=== PATIENT | female | born 1935 | race Caucasian/White ===

== ENCOUNTER 2017-12-07 13:06 | Inpatient (IN) | payer BC, OTHER ==
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
[2017-12-07] MEDS ORDERED: KETOROLAC TROMETHAMINE 30 MG/1 ML VIAL IVPUSH ONE (17:07)
[2017-12-07] MEDS ORDERED: KETOROLAC TROMETHAMINE 30 MG/1 ML VIAL ONE (18:00)
[2017-12-07 18:01] LABS: EOS % 0.5 % (0-4.5); HEMATOCRIT 41.3 % (32.4-45.2); HEMOGLOBIN 13.6 GM/dL (10.7-15.3); LYMPH % 22.9 % (8-40); MCH 27.7 pg (25.7-33.7); MCHC 32.9 g/dl (32.0-36.0); MEAN CELL VOLUME 84.4 fl (80-96); MEAN PLT VOLUME 7.7 fl (7.5-11.1); MONO % 5.8 % (3.8-10.2); NEUT % 69.8 % (42.8-82.8); PLATELET COUNT 214 K/MM3 (134-434); RDW 14.9 % (11.6-15.6); WHITE BLOOD COUNT 5.8 K/mm3 (4.0-10.0)
[2017-12-07 18:39] LABS: ANION GAP 12 MMOL/L (8-16); BLOOD UREA NITROGEN 8 mg/dL (7-18); CALCIUM 9.3 mg/dL (8.5-10.1); CHLORIDE 110 mmol/L (98-107); CO2 25 mmol/L (21-32); GLUCOSE,RANDOM 107 mg/dL (74-106); POTASSIUM 3.4 mmol/L (3.5-5.1); SGPT/ALT 26 U/L (13-61); SODIUM 147 mmol/L (136-145)
[2017-12-07 18:42] LABS: ALK PHOS 134 U/L (45-117); BILIRUBIN,TOTAL 0.4 mg/dL (0.2-1.0); CREATININE 0.3 mg/dL (0.55-1.02); SGOT/AST 18 U/L (15-37); TOT PROT 7.6 g/dl (6.4-8.2)
[2017-12-07] MEDS ORDERED: morphine CARPU-JECT 4 MG/1 ML DISP.SYRIN IVPUSH ONE (18:42)
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
[2017-12-07] MEDS ORDERED: morphine SULFATE 4 MG/ML VIAL ONE (19:08)
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
[2017-12-07] MEDS ORDERED: POTASSIUM CHLORIDE TABS 20 MEQ TABLET.ER (FP) PO ONE ×2 (20:29→20:40)
[2017-12-07] MEDS ORDERED: APIXABAN 5 MG TABLET PO ONE (20:35)
[2017-12-07] MEDS ORDERED: PHENYTOIN NA EXTENDED 100 MG CAPSULE (FP) PO ONE (20:47)
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
[2017-12-07] MEDS ORDERED: PHENYTOIN NA EXTENDED 100 MG CAPSULE (FP) ONE (23:10)
[2017-12-08] MEDS: PHENYTOIN 50 MG TAB.CHEW PO SCH ×3 (05:16→22:08)
[2017-12-08 07:47] LABS: BASO % 0.9 % (0-2.0); EOS % 1.4 % (0-4.5); HEMATOCRIT 38.9 % (32.4-45.2); HEMOGLOBIN 13.1 GM/dL (10.7-15.3); MCH 28.2 pg (25.7-33.7); MCHC 33.6 g/dl (32.0-36.0); MEAN CELL VOLUME 83.8 fl (80-96); MEAN PLT VOLUME 7.7 fl (7.5-11.1); MONO % 6.8 % (3.8-10.2); NEUT % 69.9 % (42.8-82.8); PLATELET COUNT 202 K/MM3 (134-434); RBC 4.65 M/mm3 (3.60-5.2); RDW 15.1 % (11.6-15.6); WHITE BLOOD COUNT 6.3 K/mm3 (4.0-10.0)
[2017-12-08 08:25] LABS: ANION GAP 6 MMOL/L (8-16); BLOOD UREA NITROGEN 10 mg/dL (7-18); CALCIUM 8.6 mg/dL (8.5-10.1); CHLORIDE 106 mmol/L (98-107); CO2 32 mmol/L (21-32); CREATININE 0.4 mg/dL (0.55-1.02); GLUCOSE,RANDOM 96 mg/dL (74-106); MAGNESIUM 2.2 mg/dL (1.8-2.4); PHOSPHOROUS 3.3 mg/dL (2.5-4.9); POTASSIUM 3.1 mmol/L (3.5-5.1); SODIUM 144 mmol/L (136-145)
[2017-12-08] MEDS ORDERED: PT OWN MED DRAWER 7, Y5N ONE ×2 (10:04→21:29)
[2017-12-08] MEDS: ENOXAPARIN NA (PORCINE) 60 MG/0.6 ML DISP.SYRIN SQ SCH ×2 (10:42→22:10)
[2017-12-08] MEDS: VITAMIN E 400 INTERNATIONAL-UNITS CAPSULE (FP) PO SCH (10:42)
[2017-12-08] MEDS: OMEGA-3 ACID ETHYL ESTERS (FATTY-ACIDS) 1 GM CAPSULE (FP) PO SCH ×2 (10:43→22:09)
[2017-12-08] MEDS: CALCIUM 500MG/VIT-D 200 UNITS COMBO TABLET (FP) PO SCH (10:43)
[2017-12-08] MEDS: LOSARTAN POTASSIUM 50 MG TABLET (FP) PO SCH (10:43)
[2017-12-08] MEDS: ASCORBIC ACID 500 MG TABLET (FP) PO SCH (10:43)
--- NOTE | 2017-12-08 12:31 | PN ---
Progress Note, Physician Chief Complaint: patient seen and examined complaining of hip pain and leg pain has DVT in right leg on lovenox - Current Medication List Current Medications: Active Medications Ascorbic Acid (Vitamin C -) 1,000 mg PO DAILY [facility] Last Admin: 12/08/17 10:43 Dose: 1,000 mg Calcium Carbonate/Cholecalciferol (Os-Jv 500+D -) 1 tab PO DAILY [facility] Last Admin: 12/08/17 10:43 Dose: 1 tab Enoxaparin Sodium (Lovenox -) 60 mg SQ BID [facility] Last Admin: 12/08/17 10:42 Dose: 60 mg Losartan Potassium (Cozaar -) 50 mg PO DAILY [facility] Last Admin: 12/08/17 10:43 Dose: 50 mg Uixcx-8-Hvdd Ethyl Esters (Lovaza -) 1 gm PO BID [facility] Last Admin: 12/08/17 10:43 Dose: 1 gm Oxycodone HCl (Roxicodone -) 5 mg PO Q6H PRN PRN Reason: PAIN LEVEL 6-10 Phenytoin Sodium (Dilantin Chewable Tablet -) 100 mg PO TID [facility] Last Admin: 12/08/17 05:16 Dose: 100 mg Vitamin E (Vitamin E -) 400 unit PO DAILY [facility] Last Admin: 12/08/17 10:42 Dose: 400 unit - Objective Vital Signs: Vital Signs Temperature 97.8 F 12/08/17 09:00 Pulse Rate 92 H 12/08/17 09:00 Respiratory Rate 19 12/08/17 09:00 Blood Pressure 147/74 12/08/17 09:00 O2 Sat by Pulse Oximetry (%) 98 12/08/17 06:53 Constitutional: Yes: Calm Cardiovascular: Yes: Regular Rate and Rhythm, S1, S2 Respiratory: Yes: CTA Bilaterally Gastrointestinal: Yes: Normal Bowel Sounds, Soft Musculoskeletal: Yes: Other (right hip pain) Neurological: Yes: Alert, Oriented Labs: CBC, BMP 12/08/17 06:30 12/08/17 06:30 Problem List - Problems (1) Acute DVT of right tibial vein Assessment/Plan: lovenox will need to bridge to coumadin heme consult regarding AC eliquis stopped bc interaction with dilantin Code(s): I82.441 - ACUTE EMBOLISM AND THROMBOSIS OF RIGHT TIBIAL VEIN (2) Seizure disorder Assessment/Plan: dilatin tid Code(s): G40.909 - EPILEPSY, UNSP, NOT INTRACTABLE, WITHOUT STATUS EPILEPTICUS (3) HTN (hypertension) Assessment/Plan: losartan Code(s): I10 - ESSENTIAL (PRIMARY) HYPERTENSION Assessment/Plan potassium repleted
[2017-12-08] MEDS ORDERED: POTASSIUM CHLORIDE TABS 20 MEQ TABLET.ER (FP) PO ONE (13:15)
[2017-12-08 15:30] VITALS: BMI 23.4
[2017-12-08] MEDS: DOCUSATE SODIUM 100 MG CAPSULE (FP) PO SCH (22:07)
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
[2017-12-08] MEDS: oxyCODONE HCL 5 MG TABLET PO PRN (22:30)
[2017-12-09] MEDS: PHENYTOIN 50 MG TAB.CHEW PO SCH ×3 (06:33→22:10)
[2017-12-09 07:37] LABS: INR 1.2 (0.83-1.09); PROTHROMBIN TIME (PATIENT) 13.6 SEC (9.7-13.0)
[2017-12-09 07:54] LABS: CHLORIDE 106 mmol/L (98-107); POTASSIUM 3.6 mmol/L (3.5-5.1); SODIUM 143 mmol/L (136-145)
[2017-12-09 08:05] LABS: ALBUMIN 3.2 g/dl (3.4-5.0); ALK PHOS 123 U/L (45-117); ANION GAP 8 MMOL/L (8-16); BILIRUBIN,TOTAL 0.4 mg/dL (0.2-1.0); BLOOD UREA NITROGEN 14 mg/dL (7-18); CALCIUM 8.6 mg/dL (8.5-10.1); CO2 29 mmol/L (21-32); CREATININE 0.4 mg/dL (0.55-1.3); GLUCOSE,RANDOM 95 mg/dL (74-106); SGOT/AST 16 U/L (15-37); SGPT/ALT 23 U/L (13-61); TOT PROT 6.4 g/dl (6.4-8.2)
[2017-12-09] MEDS ORDERED: PT OWN MED DRAWER 7, Y5N ONE ×2 (09:53→21:18)
[2017-12-09] MEDS: oxyCODONE HCL 5 MG TABLET PO PRN ×2 (10:20→17:30)
[2017-12-09] MEDS: CALCIUM 500MG/VIT-D 200 UNITS COMBO TABLET (FP) PO SCH (10:21)
[2017-12-09] MEDS: OMEGA-3 ACID ETHYL ESTERS (FATTY-ACIDS) 1 GM CAPSULE (FP) PO SCH ×2 (10:21→22:09)
[2017-12-09] MEDS: LOSARTAN POTASSIUM 50 MG TABLET (FP) PO SCH (10:21)
[2017-12-09] MEDS: ENOXAPARIN NA (PORCINE) 60 MG/0.6 ML DISP.SYRIN SQ SCH ×2 (10:21→22:10)
[2017-12-09] MEDS: ASCORBIC ACID 500 MG TABLET (FP) PO SCH (10:21)
[2017-12-09] MEDS: VITAMIN E 400 INTERNATIONAL-UNITS CAPSULE (FP) PO SCH (10:22)
--- NOTE | 2017-12-09 13:27 | CON.GI ---
Consult Consult Specialty:: GI Reason for Consultation:: "constipation" - History of Present Illness History of Present Illness: Chart reviewed. Hospital course noted. GI called for "constipation" Per initial intake: 82 yo female pmh of HTN, Seizures,RA, osteoarthritis and h/o femur fracture as a teenager presents to the ED for right hip and thigh pain. Unable to ambulate due to pain for 3 days. Rt. lower extremity duplex showed posterior tibial DVT Xrays show increased arthritic changes in hip/spine. NO SOB, CP, abdominal pain or changes in bowel/bladder habits. No dysphagia, odynophagia, dyspepsia, melena, hematochezia, hematemesis, acute weight loss. Base line BMs 1 /2-3 days w/o stimulatns or laxatives. No Bms for 72 hrs, asymptomatic. Tolerating curret diet. Normal abdomen on exam. CT of the lumbar spine - constipation, thickened rectosigmoid wall - History Source History Provided By: Patient, Medical Record - Past Medical History ...: No - Alcohol/Substance Use Hx Alcohol Use: No - Smoking History Smoking history: Never smoked Have you smoked in the past 12 months: No Home Medications - Allergies Allergies/Adverse Reactions: Allergies Allergy/AdvReac Type Severity Reaction Status Date / Time No Known Allergies Allergy Verified 12/07/17 13:17 - Home Medications Home Medications: Ambulatory Orders Ascorbic Acid [Vitamin C] 1,000 mg PO DAILY 12/07/17 Jv/D3/Mag11/Zinc/Reserve Operator/Jesus/Bor [Caltrate 600+D Plus Tablet] 1 each PO DAILY 03/14 Losartan Potassium [Cozaar -] 50 mg PO DAILY 12/07/17 [place]-3 Fatty Acids [[place]-3] 1,000 mg PO BID 12/07/17 Phenytoin [Dilantin Chewable Tablet -] 100 mg PO TID 12/07/17 Vitamin E 400 unit PO DAILY 12/07/17 Celecoxib [Celebrex] 200 mg PO PRN PRN 12/08/17 Family Disease History - Family Disease History Family History: Unremarkable (non-contributory) Review of Systems Findings/Remarks: as per HPI, ED, H&P Physical Exam-GI Vital Signs: Vital Signs Temperature 98.5 F 12/09/17 06:00 Pulse Rate 89 12/09/17 06:00 Respiratory Rate 18 12/09/17 06:00 Blood Pressure 142/70 12/09/17 06:00 O2 Sat by Pulse Oximetry (%) 97 12/09/17 05:45 Constitutional: Yes: Well Nourished, No Distress, Calm Eyes: Yes: Conjunctiva Clear HENT: Yes: Atraumatic Neck: Yes: Supple Cardiovascular: Yes: Regular Rate and Rhythm Respiratory: Yes: Regular Gastrointestinal Inspection: No: Ascites, Distention ...Auscultate: Yes: Normoactive Bowel Sounds ...Palpate: Yes: Soft. No: Firm/Rigid, Guarding, Mass, Tenderness, Tenderness, Epigastium Neurological: Yes: Alert, Oriented Labs: CBC, BMP 12/08/17 06:30 12/09/17 06:00 INR, PTT INR 1.20 (0.83-1.09) H 12/09/17 06:00 Laboratory Last Values WBC 6.3 K/mm3 (4.0-10.0) 12/08/17 06:30 RBC 4.65 M/mm3 (3.60-5.2) 12/08/17 06:30 Hgb 13.1 GM/dL (10.7-15.3) 12/08/17 06:30 Hct 38.9 % (32.4-45.2) 12/08/17 06:30 MCV 83.8 fl (80-96) 12/08/17 06:30 MCH 28.2 pg (25.7-33.7) 12/08/17 06:30 MCHC 33.6 g/dl (32.0-36.0) 12/08/17 06:30 RDW 15.1 % (11.6-15.6) 12/08/17 06:30 Plt Count 202 K/MM3 (134-434) 12/08/17 06:30 MPV 7.7 fl (7.5-11.1) 12/08/17 06:30 Absolute Neuts (auto) 4.4 K/mm3 (1.5-8.0) 12/08/17 06:30 Neutrophils % 69.9 % (42.8-82.8) 12/08/17 06:30 Lymphocytes % 21.0 % (8-40) 12/08/17 06:30 Monocytes % 6.8 % (3.8-10.2) 12/08/17 06:30 Eosinophils % 1.4 % (0-4.5) D 12/08/17 06:30 Basophils % 0.9 % (0-2.0) 12/08/17 06:30 Nucleated RBC % 0 % (0-0) 12/08/17 06:30 PT with INR 13.60 SEC (9.7-13.0) H 12/09/17 06:00 INR 1.20 (0.83-1.09) H 12/09/17 06:00 Sodium 143 mmol/L (136-145) 12/09/17 06:00 Potassium 3.6 mmol/L (3.5-5.1) 12/09/17 06:00 Chloride 106 mmol/L (98-107) 12/09/17 06:00 Carbon Dioxide 29 mmol/L (21-32) 12/09/17 06:00 Anion Gap 8 MMOL/L (8-16) 12/09/17 06:00 BUN 14 mg/dL (7-18) 12/09/17 06:00 Creatinine 0.4 mg/dL (0.55-1.3) L 12/09/17 06:00 Creat Clearance w eGFR > 60 (>60) 12/09/17 06:00 Random Glucose 95 mg/dL (74-106) 12/09/17 06:00 Calcium 8.6 mg/dL (8.5-10.1) 12/09/17 06:00 Phosphorus 3.3 mg/dL (2.5-4.9) 12/08/17 06:30 Magnesium 2.2 mg/dL (1.8-2.4) 12/08/17 06:30 Total Bilirubin 0.4 mg/dL (0.2-1.0) 12/09/17 06:00 AST 16 U/L (15-37) 12/09/17 06:00 ALT 23 U/L (13-61) 12/09/17 06:00 Alkaline Phosphatase 123 U/L (45-117) H 12/09/17 06:00 Total Protein 6.4 g/dl (6.4-8.2) 12/09/17 06:00 Albumin 3.2 g/dl (3.4-5.0) L 12/09/17 06:00 Imaging - Results Cat Scan: Report Reviewed (lumbar - constipation, thikened rectosigmoid wall) Problem List - Problems (1) Altered bowel function Code(s): R19.8 - OTH SYMPTOMS AND SIGNS INVOLVING THE DGSTV SYS AND ABDOMEN (2) Acute DVT of right tibial vein Code(s): I82.441 - ACUTE EMBOLISM AND THROMBOSIS OF RIGHT TIBIAL VEIN (3) HTN (hypertension) Code(s): I10 - ESSENTIAL (PRIMARY) HYPERTENSION (4) Seizure disorder Code(s): G40.909 - EPILEPSY, UNSP, NOT INTRACTABLE, WITHOUT STATUS EPILEPTICUS Assessment/Plan An 82F, with decreased mobility and slow transit constipation, vs atonic colon vs medication-related constipation (dilantin). Agree with aggressive bowel regiment such as Miralax po TID-QID until good bms. Also consider tap water enemas until clear.
[2017-12-09] MEDS ORDERED: POLYETHYLENE GLYCOL 3350 119 GM BTL PO SCH (13:30)
--- NOTE | 2017-12-09 13:33 | PN ---
Progress Note, Physician Chief Complaint: patient seen and examined in bed sleeping - Current Medication List Current Medications: Active Medications Ascorbic Acid (Vitamin C -) 1,000 mg PO DAILY [facility] Last Admin: 12/09/17 10:21 Dose: 1,000 mg Calcium Carbonate/Cholecalciferol (Os-Jv 500+D -) 1 tab PO DAILY [facility] Last Admin: 12/09/17 10:21 Dose: 1 tab Docusate Sodium (Colace -) 300 mg PO HS [facility] Last Admin: 12/08/17 22:07 Dose: 300 mg Enoxaparin Sodium (Lovenox -) 60 mg SQ BID [facility] Last Admin: 12/09/17 10:21 Dose: 60 mg Losartan Potassium (Cozaar -) 50 mg PO DAILY [facility] Last Admin: 12/09/17 10:21 Dose: 50 mg Shliu-2-Gjnt Ethyl Esters (Lovaza -) 1 gm PO BID [facility] Last Admin: 12/09/17 10:21 Dose: 1 gm Oxycodone HCl (Roxicodone -) 5 mg PO Q6H PRN PRN Reason: PAIN LEVEL 6-10 Last Admin: 12/09/17 10:20 Dose: 5 mg Phenytoin Sodium (Dilantin Chewable Tablet -) 100 mg PO TID [facility] Last Admin: 12/09/17 13:20 Dose: 100 mg Polyethylene Glycol (Miralax (For Daily Use) -) 17 gm PO BID [facility] Vitamin E (Vitamin E -) 400 unit PO DAILY [facility] Last Admin: 12/09/17 10:22 Dose: 400 unit - Objective Vital Signs: Vital Signs Temperature 98.5 F 12/09/17 06:00 Pulse Rate 89 12/09/17 06:00 Respiratory Rate 18 12/09/17 06:00 Blood Pressure 142/70 12/09/17 06:00 O2 Sat by Pulse Oximetry (%) 97 12/09/17 05:45 Constitutional: Yes: Calm Cardiovascular: Yes: Regular Rate and Rhythm, S1, S2 Respiratory: Yes: CTA Bilaterally Gastrointestinal: Yes: Normal Bowel Sounds, Soft Neurological: Yes: Alert, Oriented Labs: CBC, BMP 12/08/17 06:30 12/09/17 06:00 INR, PTT INR 1.20 (0.83-1.09) H 12/09/17 06:00 Problem List - Problems (1) Acute DVT of right tibial vein Assessment/Plan: lovenox will need to bridge to coumadin-jarrod need frequent monitoring and patient is not mobile enough to go weekly for blood draws with her PMD dr Leggett. heme consult regarding AC bone scan pending.- occult malignancy screeing work up eliquis stopped bc interaction with dilantin rheum consult pending Code(s): I82.441 - ACUTE EMBOLISM AND THROMBOSIS OF RIGHT TIBIAL VEIN (2) Seizure disorder Assessment/Plan: dilatin tid Code(s): G40.909 - EPILEPSY, UNSP, NOT INTRACTABLE, WITHOUT STATUS EPILEPTICUS (3) HTN (hypertension) Assessment/Plan: losartan Code(s): I10 - ESSENTIAL (PRIMARY) HYPERTENSION Assessment/Plan potassium repleted back pain lumbar ct noted disc herniations dr grajeda consulted constipation: gi consult miralax bid
--- NOTE | 2017-12-09 14:16 | CONSULT ---
Consult - text type - Consultation Consultation Note: FULL CONSULT DICTATED IMP: SEVERE DJD B HIPS RIGHT> LEFT PLAN: DC TO HOME OR SNF WITH SERVICES. I WILL BOOK HER FOR AN ELECTIVE RIGHT OWEN.
--- NOTE | 2017-12-09 15:58 | CONSULT ---
Consult Consult Specialty:: Rheumatology - History of Present Illness History of Present Illness: 82 yo female with history of questionable seronegative rheumatoid arthritis, Spinal stenosis, seizures (on Dilantin) hypertension and a right femur fracture , admitted with inability to walk. Renuka NASSAR been following the patient since 2004 for significant erosive osteoarthritis. Initially the possibility of rheumatoid arthritis was considered, she had negative serology and there was no significant response to Methotrexate or Leflunomide. Since then she has been stable. She has large Heberden's and Edil's nodes with no effusions in hands. -It is unlikely that she has inflammatory arthritis. The patient has a 2 year history of mild discomfort in the right hip- she was able to walk with a cane, and on her last visit [facility] on 09/06/17 she had no tenderness in the right hip during the physical examination. About 10 days ago she had progressive pain in the right hip and was not able to walk. Since admission she has not been able to walk to PT. X ray of the pelvis: right hip with severe narrowing of the joint space with bone on bone contact and increased sclerosis in the superior border. Soft tissue calcification lateral to the hip. Mild joint space narrowing of the left hip. CT of the lumbar spine reported with multilevel dis bulging and herniation with posterior spur formation and significant bilateral facet hypertrophy. Moderate top severe degenerative central spinal canal stenosis impinging right L4 and L5 - History Source History Provided By: Patient, Medical Record - Past Medical History Cardio/Vascular: Yes: HTN ...: No - Alcohol/Substance Use Hx Alcohol Use: No - Smoking History Smoking history: Never smoked Have you smoked in the past 12 months: No Home Medications - Allergies Allergies/Adverse Reactions: Allergies Allergy/AdvReac Type Severity Reaction Status Date / Time No Known Allergies Allergy Verified 12/07/17 13:17 - Home Medications Home Medications: Ambulatory Orders Ascorbic Acid [Vitamin C] 1,000 mg PO DAILY 12/07/17 Jv/D3/Mag11/Zinc/Yam Curer/Jesus/Bor [Caltrate 600+D Plus Tablet] 1 each PO DAILY 03/14 Losartan Potassium [Cozaar -] 50 mg PO DAILY 12/07/17 [place]-3 Fatty Acids [[place]-3] 1,000 mg PO BID 12/07/17 Phenytoin [Dilantin Chewable Tablet -] 100 mg PO TID 12/07/17 Vitamin E 400 unit PO DAILY 12/07/17 Celecoxib [Celebrex] 200 mg PO PRN PRN 12/08/17 Review of Systems - Review of Systems Constitutional: reports: Malaise, Weakness Eyes: reports: No Symptoms HENT: reports: No Symptoms Neck: reports: No Symptoms Cardiovascular: reports: No Symptoms Respiratory: reports: No Symptoms Gastrointestinal: reports: No Symptoms Genitourinary: reports: No Symptoms Musculoskeletal: reports: Other (See HPI) Physical Exam Vital Signs: Vital Signs Temperature 98.2 F 12/09/17 14:24 Pulse Rate 91 H 12/09/17 14:24 Respiratory Rate 18 12/09/17 14:24 Blood Pressure 150/82 12/09/17 14:24 O2 Sat by Pulse Oximetry (%) 97 12/09/17 05:45 Constitutional: Yes: Mild Distress Eyes: Yes: WNL HENT: Yes: WNL Neck: Yes: WNL Cardiovascular: Yes: WNL Respiratory: Yes: WNL Gastrointestinal: Yes: WNL Musculoskeletal: Yes: Other (Severe tenderness ion the right hip. Cannot flex more than 30o. Large Heberden's and Edil's nodes in both hands. No othe ractive joints.) Labs: CBC, BMP 12/08/17 06:30 12/09/17 06:00 Laboratory Tests 12/09/17 06:00 Random Glucose 95 Calcium 8.6 Total Bilirubin 0.4 AST 16 ALT 23 Alkaline Phosphatase 123 H Total Protein 6.4 Albumin 3.2 L Problem List - Problems (1) Osteoarthritis of right hip Assessment/Plan: Osteoarthritis of the right hip hip with severe damage. The patient was seen by Dr. Dunn. The patient will be scheduled for THR. Code(s): M16.11 - UNILATERAL PRIMARY OSTEOARTHRITIS, RIGHT HIP
--- NOTE | 2017-12-09 18:13 | CONS ---
DATE OF CONSULTATION: 12/09/2017 ORTHOPEDIC CONSULTATION/[facility] HISTORY OF PRESENT ILLNESS: Patient is an 82-year-old female, long history of hip pain and arthritis in their hip and in other locations. She has been managing at home with progressive discomfort in her hips, especially in her right hip. The pain was still much, so she was admitted through the emergency room the other day. No recent history of fall or trauma. Patient does give a history of surgery performed on her right femur when she was 21 years old but nothing recent. PHYSICAL EXAMINATION: Patient has poor range of motion of both her hips, but the right one is much more symptomatic and painful with any range of motion. She abducts on her right side at about 15 to 20 degrees, external rotation markedly limited. Extension is complete, but she can only flex about 60, 70 degrees. Range of motion is similar but less severity on the left hand side. She has slight limb length discrepancy with centimeter. She has surgical incision on the lateral mid distal thigh of the right lower extremity. Good motion in the ankle and toes. X-rays and CAT scan that were taken upon admission shows severe DJD, especially in the right hip, less so in the left hip. There is status post open reduction, internal fixation of the mid to distal femur with the plate and screws present, as well as a large of callus medially. IMPRESSION: Worsening pain in both hips, but especially in her right hip with severe degenerative joint disease both hips and status post open reduction, internal fixation of the right femoral shaft many years prior. Risks, benefits, and alternatives discussed with patient and with in great detail. We have elected to discharge the patient with social media marketing analyst and physical therapy and electively bring her in for an operative intervention right total hip replacement in the future. Patient realized this procedure is further complicated more than the normal total hip replacement due to the fact that the patient has previous open reduction, internal fixation which makes the procedure more difficult and potentially stress fractures in that region as well. Patient understands these and all complications, would like to proceed. Her was present as well and also asked questions and was satisfied with the responses. Will book the patient in the upcoming weeks, so the patient to come back into the hospital to have an elective procedure performed. In the interim, patient could be discharged to home with services or to a short-term nursing facility and to electively go back into the hospital. While she is here we will order a Noe CAT scan to allow us to preoperatively template and use the Noe device to insert her hip. I went through that protocol with her and her as well. DALLAS CHASE M.D. [id number]
[2017-12-09] MEDS: POLYETHYLENE GLYCOL 3350 119 GM BTL PO SCH ×2 (18:58→22:11)
--- NOTE | 2017-12-09 20:04 | PN ---
Progress Note (short form) - Note Progress Note: Patient seen and examined Seen by rheumatology and ortho For THR Has DJD, o.a., nerve impingement , central spine stenosis , knee compartment impingement R>L Fecal impaction Has right tibial DVT- placed on full dose anticoagulation Last Vital Signs Temp Pulse Resp BP Pulse Ox 98.2 F 83 20 155/83 97 12/09/17 18:00 12/09/17 18:00 12/09/17 18:00 12/09/17 18:00 12/09/17 14:00 Lungs- diminished breath sounds Cor- RSR Abd -soft Ext- RLE difficult with ROM secondary to OA of hip CBC, BMP 12/08/17 06:30 12/09/17 06:00 Current Medications Generic Name Dose Route Start Last Admin Trade Name Freq PRN Reason Stop Dose Admin Ascorbic Acid 1,000 mg 12/08/17 10:00 12/09/17 10:21 Vitamin C - PO 1,000 mg DAILY [facility] Administration Calcium Carbonate/Cholecalciferol 1 tab 12/08/17 10:00 12/09/17 10:21 Os-Jv 500+D - PO 1 tab DAILY [facility] Administration Docusate Sodium 300 mg 12/08/17 22:00 12/08/17 22:07 Colace - PO 300 mg HS [facility] Administration Enoxaparin Sodium 60 mg 12/08/17 10:00 12/09/17 10:21 Lovenox - SQ 60 mg BID [facility] Administration Losartan Potassium 50 mg 12/08/17 10:00 12/09/17 10:21 Cozaar - PO 50 mg DAILY [facility] Administration Ssfby-6-Zrgc Ethyl Esters 1 gm 12/08/17 10:00 12/09/17 10:21 Lovaza - PO 1 gm BID [facility] Administration Oxycodone HCl 5 mg 12/07/17 22:51 12/09/17 17:30 Roxicodone - PO 5 mg Q6H PRN Administration PAIN LEVEL 6-10 Phenytoin Sodium 100 mg 12/08/17 06:00 12/09/17 13:20 Dilantin Chewable Tablet - PO 100 mg TID [facility] Administration Polyethylene Glycol 17 gm 12/09/17 18:00 12/09/17 18:58 Miralax (For Daily Use) - PO Not Given QID [facility] Vitamin E 400 unit 12/08/17 10:00 12/09/17 10:22 Vitamin E - PO 400 unit DAILY [facility] Administration Impr: OA For THR For a/c with tibial DVT.
[2017-12-09] MEDS: DOCUSATE SODIUM 100 MG CAPSULE (FP) PO SCH (22:09)
[2017-12-10] MEDS: PHENYTOIN 50 MG TAB.CHEW PO SCH ×3 (06:31→21:53)
[2017-12-10 07:12] LABS: BASO % 0.9 % (0-2.0); EOS % 3.6 % (0-4.5); HEMATOCRIT 39.1 % (32.4-45.2); HEMOGLOBIN 12.7 GM/dL (10.7-15.3); MCH 27.6 pg (25.7-33.7); MCHC 32.4 g/dl (32.0-36.0); MEAN CELL VOLUME 85.1 fl (80-96); MEAN PLT VOLUME 7.6 fl (7.5-11.1); NEUT % 58.5 % (42.8-82.8); PLATELET COUNT 191 K/MM3 (134-434); RDW 14.5 % (11.6-15.6); WHITE BLOOD COUNT 5.5 K/mm3 (4.0-10.0)
[2017-12-10 07:59] LABS: ANION GAP 6 MMOL/L (8-16); BLOOD UREA NITROGEN 13 mg/dL (7-18); CALCIUM 8.5 mg/dL (8.5-10.1); CHLORIDE 106 mmol/L (98-107); CO2 32 mmol/L (21-32); GLUCOSE,RANDOM 99 mg/dL (74-106); POTASSIUM 3.8 mmol/L (3.5-5.1); SODIUM 144 mmol/L (136-145)
[2017-12-10 08:02] LABS: ALK PHOS 125 U/L (45-117); BILIRUBIN,TOTAL 0.4 mg/dL (0.2-1.0); CREATININE 0.4 mg/dL (0.55-1.3); SGOT/AST 16 U/L (15-37); SGPT/ALT 22 U/L (13-61); TOT PROT 6.3 g/dl (6.4-8.2)
[2017-12-10] MEDS: oxyCODONE HCL 5 MG TABLET PO PRN (08:10)
--- NOTE | 2017-12-10 08:18 | PN ---
Progress Note, Physician Chief Complaint: AWAKE ALERT EVENTS AND NOTES REVIEWED C/O HIP PAIN - Current Medication List Current Medications: Active Medications Ascorbic Acid (Vitamin C -) 1,000 mg PO DAILY [facility] Last Admin: 12/09/17 10:21 Dose: 1,000 mg Calcium Carbonate/Cholecalciferol (Os-Jv 500+D -) 1 tab PO DAILY [facility] Last Admin: 12/09/17 10:21 Dose: 1 tab Docusate Sodium (Colace -) 300 mg PO HS [facility] Last Admin: 12/09/17 22:09 Dose: 300 mg Enoxaparin Sodium (Lovenox -) 60 mg SQ BID [facility] Last Admin: 12/09/17 22:10 Dose: 60 mg Losartan Potassium (Cozaar -) 50 mg PO DAILY [facility] Last Admin: 12/09/17 10:21 Dose: 50 mg Ksvwc-6-Zric Ethyl Esters (Lovaza -) 1 gm PO BID [facility] Last Admin: 12/09/17 22:09 Dose: 1 gm Oxycodone HCl (Roxicodone -) 5 mg PO Q6H PRN PRN Reason: PAIN LEVEL 6-10 Last Admin: 12/10/17 08:10 Dose: 5 mg Phenytoin Sodium (Dilantin Chewable Tablet -) 100 mg PO TID [facility] Last Admin: 12/10/17 06:31 Dose: 100 mg Polyethylene Glycol (Miralax (For Daily Use) -) 17 gm PO QID [facility] Last Admin: 12/09/17 22:11 Dose: 17 grams Vitamin E (Vitamin E -) 400 unit PO DAILY [facility] Last Admin: 12/09/17 10:22 Dose: 400 unit - Objective Vital Signs: Vital Signs Temperature 98.3 F 12/10/17 06:00 Pulse Rate 84 12/10/17 06:00 Respiratory Rate 17 12/10/17 06:00 Blood Pressure 148/71 12/10/17 06:00 O2 Sat by Pulse Oximetry (%) 97 12/10/17 06:00 Constitutional: Yes: Mild Distress Eyes: Yes: WNL HENT: Yes: WNL Neck: Yes: WNL Cardiovascular: Yes: WNL Respiratory: Yes: WNL Gastrointestinal: Yes: WNL Genitourinary: Yes: WNL Musculoskeletal: Yes: Muscle Pain, Muscle Weakness Extremities: Yes: WNL Edema: No Peripheral Pulses WNL: Yes Integumentary: Yes: WNL Wound/Incision: Yes: Other Neurological: Yes: Pre-Existing Deficit, Unsteady Gait ...Motor Strength: LLE, RLE Psychiatric: Yes: Other Labs: CBC, BMP 12/10/17 06:10 12/10/17 06:10 INR, PTT INR 1.20 (0.83-1.09) H 12/09/17 06:00 Problem List - Problems (1) Acute DVT of right tibial vein Code(s): I82.441 - ACUTE EMBOLISM AND THROMBOSIS OF RIGHT TIBIAL VEIN (2) Altered bowel function Code(s): R19.8 - OTH SYMPTOMS AND SIGNS INVOLVING THE DGSTV SYS AND ABDOMEN (3) HTN (hypertension) Code(s): I10 - ESSENTIAL (PRIMARY) HYPERTENSION (4) Osteoarthritis of right hip Code(s): M16.11 - UNILATERAL PRIMARY OSTEOARTHRITIS, RIGHT HIP (5) Seizure disorder Code(s): G40.909 - EPILEPSY, UNSP, NOT INTRACTABLE, WITHOUT STATUS EPILEPTICUS Assessment/Plan AWAIT SNF PLACEMENT OOB TO CHAIR PAIN CONTROL DVT PROPHYLAXIS
[2017-12-10] MEDS ORDERED: PT OWN MED DRAWER 7, Y5N ONE ×3 (10:35→21:49)
[2017-12-10] MEDS: OMEGA-3 ACID ETHYL ESTERS (FATTY-ACIDS) 1 GM CAPSULE (FP) PO SCH ×2 (10:52→21:52)
[2017-12-10] MEDS: CALCIUM 500MG/VIT-D 200 UNITS COMBO TABLET (FP) PO SCH (10:52)
[2017-12-10] MEDS: SENNOSIDES 8.6MG TABLET (FP) PO SCH ×2 (10:52→21:50)
[2017-12-10] MEDS: ENOXAPARIN NA (PORCINE) 60 MG/0.6 ML DISP.SYRIN SQ SCH ×2 (10:52→21:50)
[2017-12-10] MEDS: ASCORBIC ACID 500 MG TABLET (FP) PO SCH (10:52)
[2017-12-10] MEDS: LOSARTAN POTASSIUM 50 MG TABLET (FP) PO SCH (10:52)
[2017-12-10] MEDS: VITAMIN E 400 INTERNATIONAL-UNITS CAPSULE (FP) PO SCH (10:53)
[2017-12-10] MEDS: POLYETHYLENE GLYCOL 3350 119 GM BTL PO SCH ×4 (10:53→21:50)
--- NOTE | 2017-12-10 16:26 | PN ---
Progress Note (short form) - Note Progress Note: Patient seen in follow up. No new complaints. No significant events overnight. Inpatient Meds reviewed. Current Medications Generic Name Dose Route Start Last Admin Trade Name Freq PRN Reason Stop Dose Admin Ascorbic Acid 1,000 mg 12/08/17 10:00 12/10/17 10:52 Vitamin C - PO 1,000 mg DAILY [facility] Administration Calcium Carbonate/Cholecalciferol 1 tab 12/08/17 10:00 12/10/17 10:52 Os-Jv 500+D - PO 1 tab DAILY [facility] Administration Docusate Sodium 300 mg 12/08/17 22:00 12/09/17 22:09 Colace - PO 300 mg HS [facility] Administration Enoxaparin Sodium 60 mg 12/08/17 10:00 12/10/17 10:52 Lovenox - SQ 60 mg BID [facility] Administration Losartan Potassium 50 mg 12/08/17 10:00 12/10/17 10:52 Cozaar - PO 50 mg DAILY [facility] Administration Ypiju-4-Iixh Ethyl Esters 1 gm 12/08/17 10:00 12/10/17 10:52 Lovaza - PO 1 gm BID [facility] Administration Oxycodone HCl 5 mg 12/07/17 22:51 12/10/17 08:10 Roxicodone - PO 5 mg Q6H PRN Administration PAIN LEVEL 6-10 Phenytoin Sodium 100 mg 12/08/17 06:00 12/10/17 13:45 Dilantin Chewable Tablet - PO 100 mg TID [facility] Administration Polyethylene Glycol 17 gm 12/09/17 18:00 12/10/17 13:45 Miralax (For Daily Use) - PO 17 grams QID [facility] Administration Senna 1 tab 12/10/17 10:00 12/10/17 10:52 Senna - PO 1 tab BID [facility] Administration Vitamin E 400 unit 12/08/17 10:00 12/10/17 10:53 Vitamin E - PO 400 unit DAILY [facility] Administration On Examination: Last Vital Signs Temp Pulse Resp BP Pulse Ox 98.3 F 95 H 20 134/65 96 12/10/17 14:27 12/10/17 14:27 12/10/17 14:27 12/10/17 14:27 12/10/17 14:00 General: In no acute distress, lying comfortably in bed. Extremities: No pallor or icterus. No pedal edema. No palpable lymphadenopathy. Neuro: Alert, oriented, non-focal. Labs: CBC, BMP 12/10/17 06:10 12/10/17 06:10 Assessment. Elderly female with debilitating DJD, with incidentally discovered distal DVT. On full anticoagulation for above. Would note that in light of low risk of progression or embolism of distal DVTs, serial observation without anticoagulation would also be adequate. Since AC already started reasonable to continue for a limited duration.
--- NOTE | 2017-12-10 17:23 | PN ---
Progress Note (short form) - Note Progress Note: NAD, AAOx3. Asymptomatic from GHI perspective. Reports no BMs. Benign abdomen. Will arder TWE x 2-3 and MIralax po QID. Discussed with the patient. Problem List - Problems (1) Altered bowel function Code(s): R19.8 - OTH SYMPTOMS AND SIGNS INVOLVING THE DGSTV SYS AND ABDOMEN (2) Acute DVT of right tibial vein Code(s): I82.441 - ACUTE EMBOLISM AND THROMBOSIS OF RIGHT TIBIAL VEIN (3) HTN (hypertension) Code(s): I10 - ESSENTIAL (PRIMARY) HYPERTENSION (4) Seizure disorder Code(s): G40.909 - EPILEPSY, UNSP, NOT INTRACTABLE, WITHOUT STATUS EPILEPTICUS
[2017-12-10] MEDS: DOCUSATE SODIUM 100 MG CAPSULE (FP) PO SCH (21:50)
[2017-12-11] MEDS: oxyCODONE HCL 5 MG TABLET PO PRN ×3 (00:36→22:38)
[2017-12-11] MEDS: PHENYTOIN 50 MG TAB.CHEW PO SCH ×3 (05:29→22:40)
--- NOTE | 2017-12-11 09:06 | PN ---
Progress Note (short form) - Note Progress Note: ORTHOPEDICALLTY STABLE OK TO DC TO SNF WE HAVE SCHEDULED HER FOR ELECTIVE RIGHT TOTAL HIP REPLACEMENT ON December
[2017-12-11] MEDS ORDERED: PT OWN MED DRAWER 7, Y5N ONE ×2 (10:43→22:34)
[2017-12-11] MEDS: ASCORBIC ACID 500 MG TABLET (FP) PO SCH (10:49)
[2017-12-11] MEDS: VITAMIN E 400 INTERNATIONAL-UNITS CAPSULE (FP) PO SCH (10:49)
[2017-12-11] MEDS: CALCIUM 500MG/VIT-D 200 UNITS COMBO TABLET (FP) PO SCH (10:49)
[2017-12-11] MEDS: SENNOSIDES 8.6MG TABLET (FP) PO SCH ×2 (10:49→22:39)
[2017-12-11] MEDS: LOSARTAN POTASSIUM 50 MG TABLET (FP) PO SCH (10:49)
[2017-12-11] MEDS: OMEGA-3 ACID ETHYL ESTERS (FATTY-ACIDS) 1 GM CAPSULE (FP) PO SCH ×2 (10:49→22:39)
[2017-12-11] MEDS: ENOXAPARIN NA (PORCINE) 60 MG/0.6 ML DISP.SYRIN SQ SCH ×2 (10:50→22:39)
[2017-12-11] MEDS: POLYETHYLENE GLYCOL 3350 119 GM BTL PO SCH ×4 (10:59→22:39)
--- NOTE | 2017-12-11 11:24 | PN ---
Progress Note, Physician Chief Complaint: AWAKE ALERT FAMILY BEDSIDE FEELS GOOD TODAY - Current Medication List Current Medications: Active Medications Ascorbic Acid (Vitamin C -) 1,000 mg PO DAILY [facility] Last Admin: 12/11/17 10:49 Dose: 1,000 mg Calcium Carbonate/Cholecalciferol (Os-Jv 500+D -) 1 tab PO DAILY [facility] Last Admin: 12/11/17 10:49 Dose: 1 tab Docusate Sodium (Colace -) 300 mg PO HS [facility] Last Admin: 12/10/17 21:50 Dose: 300 mg Enoxaparin Sodium (Lovenox -) 60 mg SQ BID [facility] Last Admin: 12/11/17 10:50 Dose: 60 mg Losartan Potassium (Cozaar -) 50 mg PO DAILY [facility] Last Admin: 12/11/17 10:49 Dose: 50 mg Znvwt-8-Xzai Ethyl Esters (Lovaza -) 1 gm PO BID [facility] Last Admin: 12/11/17 10:49 Dose: 1 gm Oxycodone HCl (Roxicodone -) 5 mg PO Q6H PRN PRN Reason: PAIN LEVEL 6-10 Last Admin: 12/11/17 06:51 Dose: 5 mg Phenytoin Sodium (Dilantin Chewable Tablet -) 100 mg PO TID [facility] Last Admin: 12/11/17 05:29 Dose: 100 mg Polyethylene Glycol (Miralax (For Daily Use) -) 17 gm PO QID [facility] Last Admin: 12/11/17 10:59 Dose: Not Given Senna (Senna -) 1 tab PO BID [facility] Last Admin: 12/11/17 10:49 Dose: 1 tab Vitamin E (Vitamin E -) 400 unit PO DAILY [facility] Last Admin: 12/11/17 10:49 Dose: 400 unit - Objective Vital Signs: Vital Signs Temperature 99.1 F 12/11/17 10:00 Pulse Rate 92 H 12/11/17 10:00 Respiratory Rate 18 12/11/17 10:00 Blood Pressure 123/65 12/11/17 10:00 O2 Sat by Pulse Oximetry (%) 98 12/11/17 05:05 Constitutional: Yes: Mild Distress Eyes: Yes: WNL HENT: Yes: WNL Neck: Yes: WNL Cardiovascular: Yes: WNL Respiratory: Yes: WNL Gastrointestinal: Yes: WNL Genitourinary: Yes: WNL Musculoskeletal: Yes: Back Pain Extremities: Yes: WNL Edema: No Peripheral Pulses WNL: Yes Integumentary: Yes: WNL Wound/Incision: Yes: Clean/Dry Neurological: Yes: WNL ...Motor Strength: LLE, RLE Psychiatric: Yes: WNL Labs: CBC, BMP 12/10/17 06:10 12/10/17 06:10 INR, PTT INR 1.20 (0.83-1.09) H 12/09/17 06:00 Problem List - Problems (1) Acute DVT of right tibial vein Code(s): I82.441 - ACUTE EMBOLISM AND THROMBOSIS OF RIGHT TIBIAL VEIN (2) Altered bowel function Code(s): R19.8 - OTH SYMPTOMS AND SIGNS INVOLVING THE DGSTV SYS AND ABDOMEN (3) HTN (hypertension) Code(s): I10 - ESSENTIAL (PRIMARY) HYPERTENSION (4) Osteoarthritis of right hip Code(s): M16.11 - UNILATERAL PRIMARY OSTEOARTHRITIS, RIGHT HIP (5) Seizure disorder Code(s): G40.909 - EPILEPSY, UNSP, NOT INTRACTABLE, WITHOUT STATUS EPILEPTICUS Assessment/Plan THR SCHEDULED FOR DECEMBER WITH DR RENA LEACH TO CHAIR WITH ASSIST SNF PLACEMENT INCENTIVE SPIROMETRY PAIN CONTROL MOM PRN DVT PROPHYLAXIS
--- NOTE | 2017-12-11 15:12 | PN ---
Progress Note (short form) - Note Progress Note: +BMs, feels better. Cont. current care. Problem List - Problems (1) Altered bowel function Code(s): R19.8 - OTH SYMPTOMS AND SIGNS INVOLVING THE DGSTV SYS AND ABDOMEN (2) Acute DVT of right tibial vein Code(s): I82.441 - ACUTE EMBOLISM AND THROMBOSIS OF RIGHT TIBIAL VEIN (3) HTN (hypertension) Code(s): I10 - ESSENTIAL (PRIMARY) HYPERTENSION (4) Seizure disorder Code(s): G40.909 - EPILEPSY, UNSP, NOT INTRACTABLE, WITHOUT STATUS EPILEPTICUS
--- NOTE | 2017-12-11 18:16 | CONSULT ---
Consult - text type - Consultation Consultation Note: NEUROSURGERY CONSULTATION Nettie Reno is an 82 year old female with multiple medical problems. I was asked to see her regarding Lumbar spine complaints. I reviewed CT of the Abdomen which was reformatted for the Lumbar spine and demonstrates moderate degenerative changes with calcified disc bulges and hypertrophic facets and ligamentum flavum which cause significant lateral recess stenosis at multiple levels, on both sides. When asked, she denies back pain and describes "discomfort which I can live with." She has no bowel or bladder findings and no fixed motor deficit. I described to her the role of potential injections or bracing for Lumbar degenerative pathology and the unlikely role for decompression and or fusion for severe and refractory cases. Understandably, she and her are not eager to pursue surgery and I described warning signs which might prompt further evaluation. I gave them contact information and answered a series of questions. We were in agreement with conservative management for now and they appreciated my discussion with them. No acute Neurosurgical intervention is indicated or planned.
[2017-12-11] MEDS: DOCUSATE SODIUM 100 MG CAPSULE (FP) PO SCH (22:40)
[2017-12-12] MEDS: PHENYTOIN 50 MG TAB.CHEW PO SCH ×3 (05:59→22:15)
[2017-12-12] MEDS ORDERED: PT OWN MED DRAWER 7, Y5N ONE (09:39)
[2017-12-12] MEDS: ASCORBIC ACID 500 MG TABLET (FP) PO SCH (09:46)
[2017-12-12] MEDS: ENOXAPARIN NA (PORCINE) 60 MG/0.6 ML DISP.SYRIN SQ SCH ×2 (09:46→22:16)
[2017-12-12] MEDS: LOSARTAN POTASSIUM 50 MG TABLET (FP) PO SCH (09:46)
[2017-12-12] MEDS: VITAMIN E 400 INTERNATIONAL-UNITS CAPSULE (FP) PO SCH (09:47)
[2017-12-12] MEDS: SENNOSIDES 8.6MG TABLET (FP) PO SCH ×2 (09:47→22:16)
[2017-12-12] MEDS: POLYETHYLENE GLYCOL 3350 119 GM BTL PO SCH ×4 (09:47→22:17)
[2017-12-12] MEDS: CALCIUM 500MG/VIT-D 200 UNITS COMBO TABLET (FP) PO SCH (09:47)
[2017-12-12] MEDS: OMEGA-3 ACID ETHYL ESTERS (FATTY-ACIDS) 1 GM CAPSULE (FP) PO SCH ×2 (09:47→22:15)
--- NOTE | 2017-12-12 11:38 | PN ---
Progress Note, Physician Chief Complaint: right tibial DVT History of Present Illness: right tibial DVT NAD refuses to go to SNF will go home with hospital bed - Current Medication List Current Medications: Active Medications Ascorbic Acid (Vitamin C -) 1,000 mg PO DAILY [facility] Last Admin: 12/12/17 09:46 Dose: 1,000 mg Calcium Carbonate/Cholecalciferol (Os-Jv 500+D -) 1 tab PO DAILY [facility] Last Admin: 12/12/17 09:47 Dose: 1 tab Docusate Sodium (Colace -) 300 mg PO HS [facility] Last Admin: 12/11/17 22:40 Dose: Not Given Enoxaparin Sodium (Lovenox -) 60 mg SQ BID [facility] Last Admin: 12/12/17 09:46 Dose: 60 mg Losartan Potassium (Cozaar -) 50 mg PO DAILY [facility] Last Admin: 12/12/17 09:46 Dose: 50 mg Lvmwe-9-Tjsm Ethyl Esters (Lovaza -) 1 gm PO BID [facility] Last Admin: 12/12/17 09:47 Dose: 1 gm Oxycodone HCl (Roxicodone -) 5 mg PO Q6H PRN PRN Reason: PAIN LEVEL 6-10 Last Admin: 12/11/17 22:38 Dose: 5 mg Phenytoin Sodium (Dilantin Chewable Tablet -) 100 mg PO TID [facility] Last Admin: 12/12/17 05:59 Dose: 100 mg Polyethylene Glycol (Miralax (For Daily Use) -) 17 gm PO QID [facility] Last Admin: 12/12/17 09:47 Dose: Not Given Senna (Senna -) 1 tab PO BID [facility] Last Admin: 12/12/17 09:47 Dose: Not Given Vitamin E (Vitamin E -) 400 unit PO DAILY [facility] Last Admin: 12/12/17 09:47 Dose: 400 unit - Objective Vital Signs: Vital Signs Temperature 97.9 F 12/12/17 09:45 Pulse Rate 95 H 12/12/17 09:45 Respiratory Rate 17 12/12/17 09:45 Blood Pressure 143/59 12/12/17 09:45 O2 Sat by Pulse Oximetry (%) 98 12/12/17 05:02 Constitutional: Yes: Well Nourished, No Distress, Calm Cardiovascular: Yes: Regular Rate and Rhythm Respiratory: Yes: Regular Gastrointestinal: Yes: Normal Bowel Sounds, Soft Musculoskeletal: Yes: Joint Stiffness, Muscle Weakness Extremities: Yes: Deformity (BL hand 2/2 to OA) Edema: No Neurological: Yes: Alert, Oriented Psychiatric: Yes: Alert, Oriented Labs: CBC, BMP 12/10/17 06:10 12/10/17 06:10 INR, PTT INR 1.20 (0.83-1.09) H 12/09/17 06:00 Problem List - Problems (1) Acute DVT of right tibial vein Assessment/Plan: -Hematology on board -start warfarin, continue lovenox until therapeutic on coumadin -labs in AM Code(s): I82.441 - ACUTE EMBOLISM AND THROMBOSIS OF RIGHT TIBIAL VEIN (2) Altered bowel function Code(s): R19.8 - OTH SYMPTOMS AND SIGNS INVOLVING THE DGSTV SYS AND ABDOMEN (3) HTN (hypertension) Code(s): I10 - ESSENTIAL (PRIMARY) HYPERTENSION (4) Osteoarthritis of right hip Assessment/Plan: -Seen by orhtopedist -Scheduled for THR outpatient, which will be postponed given the current medical status Code(s): M16.11 - UNILATERAL PRIMARY OSTEOARTHRITIS, RIGHT HIP (5) Osteoarthritis Assessment/Plan: multiple joints-severe -Seen by Rheumatology -pain management -Unable to get out of bed -Physical therapy Code(s): M19.90 - UNSPECIFIED OSTEOARTHRITIS, UNSPECIFIED SITE Assessment/Plan See problem list
--- NOTE | 2017-12-12 14:37 | PN ---
Physical Exam: SUBJECTIVE: Patient seen and examined at bed side this morning. Has pain in the right hip. Denies chest pain, sob, cough, palpitation, abdominal pain, nausea or vomiting. Bowel/Bladder habit normal. Sleep/Appetite normal. No acute overnight events. OBJECTIVE: Vital Signs Period Temp Pulse Resp BP Sys/Salas Pulse Ox Last 24 Hr 97.8 F-98.3 F 71-95 17-20 121-143/55-72 98-98 GENERAL: Elderly female, lying comfortably in bed, is awake, alert, and fully oriented, in no acute distress. HEAD: Normal with no signs of trauma. EYES: EOM intact, Pallor +, no icterus. ENT: Ears normal, moist mucous membranes. NECK: Supple. LUNGS: B/L Breath sounds equal, clear to auscultation bilaterally, no wheezes, no crackles, no accessory muscle use. HEART: Regular rate and rhythm, S1, S2 with soft systolic murmur. ABDOMEN: Soft, nontender, no organomegaly appreciated. UPPER EXTREMITIES: 2+ pulses, warm, well-perfused, no edema. LOWER EXTREMITIES: 2+ pulses, warm, well-perfused, no edema. Left LE shorter than the right. ROM limited in the right. NEUROLOGICAL: No facial droop. Normal speech, gait not observed. PSYCH: Normal mood, normal affect. SKIN: Warm, dry, normal turgor, no rashes. Small brown-black colored lesions throughout the body. Active Medications Generic Name Dose Route Start Last Admin Trade Name Freq PRN Reason Stop Dose Admin Ascorbic Acid 1,000 mg 12/08/17 10:00 12/12/17 09:46 Vitamin C - PO 1,000 mg DAILY [facility] Administration Calcium Carbonate/Cholecalciferol 1 tab 12/08/17 10:00 12/12/17 09:47 Os-Jv 500+D - PO 1 tab DAILY [facility] Administration Docusate Sodium 300 mg 12/08/17 22:00 12/11/17 22:40 Colace - PO Not Given HS [facility] Enoxaparin Sodium 60 mg 12/08/17 10:00 12/12/17 09:46 Lovenox - SQ 60 mg BID [facility] Administration Losartan Potassium 50 mg 12/08/17 10:00 12/12/17 09:46 Cozaar - PO 50 mg DAILY [facility] Administration Tlxeu-8-Yfyf Ethyl Esters 1 gm 12/08/17 10:00 12/12/17 09:47 Lovaza - PO 1 gm BID [facility] Administration Oxycodone HCl 5 mg 12/07/17 22:51 12/11/17 22:38 Roxicodone - PO 5 mg Q6H PRN Administration PAIN LEVEL 6-10 Phenytoin Sodium 100 mg 12/08/17 06:00 12/12/17 05:59 Dilantin Chewable Tablet - PO 100 mg TID [facility] Administration Polyethylene Glycol 17 gm 12/09/17 18:00 12/12/17 09:47 Miralax (For Daily Use) - PO Not Given QID [facility] Senna 1 tab 12/10/17 10:00 12/12/17 09:47 Senna - PO Not Given BID [facility] Vitamin E 400 unit 12/08/17 10:00 12/12/17 09:47 Vitamin E - PO 400 unit DAILY [facility] Administration Imaging: Right LE US IMPRESSION: Right leg DVT is seen. Specifically thrombosis of the posterior tibial vein is noted. The remaining deep veins appear patent. This is an 82 year old female with a past medical history of RA, HTN, seizure disorder, right femur fracture who presented to the ED with severe left thigh pain x 3 days. ASSESSMENT Acute DVT of right tibial vein H/O Seizure on Dilantin: pt states she hasn't had seizure since > 20 yrs, has been on Dilantin since Osteoarthritis of right hip: Has an elective RHR scheduled on Jan 02, 2018 PLAN Acute Right tibial vein thrombosis She is currently on Lovenox 60 mg sq BID. Recommend to bridge to coumadin, INR checks maintain it between 2-3. Coumadin is a better choice as newer coags interact with Dilantin reducing its efficacy. Discussing regarding the placement of IVC filter. Since patient will be off a /c for the surgery, may need IVC filter placement prior to it. Once discharged, needs to f/up with Dr. Cox/Dr. Brown as outpatient. Plan of care explained to the patient. She verbalized understanding. Case discussed with Dr. Cox. Visit type - Emergency Visit Emergency Visit: Yes ED Registration Date: 12/12/17 Care time: The patient presented to the Emergency Department on the above date and was hospitalized for further evaluation of their emergent condition. - New Patient This patient is new to me today: No - Critical Care Critical Care patient: No - Discharge Referral Referred to [facility] No
[2017-12-12] MEDS ORDERED: WARFARIN NA 5 MG TABLET (UD) PO ONE (18:00)
[2017-12-12] MEDS ORDERED: METHOCARBAMOL 500 MG TABLET PO PRN (22:01)
--- NOTE | 2017-12-12 22:09 | DS ---
Physical Examination Vital Signs: Vital Signs Temperature 98.6 F 12/12/17 18:20 Pulse Rate 94 H 12/12/17 18:20 Respiratory Rate 18 12/12/17 18:20 Blood Pressure 134/67 12/12/17 18:20 O2 Sat by Pulse Oximetry (%) 98 12/12/17 14:00 Findings/Remarks: This is an 82 year old female with a past medical history of RA, HTN, seizure disorder, right femur fracture who presented to the ED with severe left thigh pain x 3 days. She also reports swelling to her right leg. Pt has chronic pain related to RA. She has been having right thigh pain x 3 month for which she received PT which initially helped but then she stopped going as it was too painful. The pain was tolerable up until 3 days ago, worst today. She reports that she was unable to weight bear today. ER course was notable for: (1) xray hip and femur without fracture (2) US with DVT posterior tibial vein Constitutional: Yes: Well Nourished, No Distress, Calm Cardiovascular: Yes: Regular Rate and Rhythm Respiratory: Yes: Regular Gastrointestinal: Yes: Normal Bowel Sounds, Soft Musculoskeletal: Yes: Joint Stiffness, Muscle Weakness Extremities: Yes: Deformity (Bl hands) Edema: No Peripheral Pulses WNL: Yes Neurological: Yes: Alert, Oriented Psychiatric: Yes: Alert, Oriented Labs: CBC, BMP 12/10/17 06:10 12/10/17 06:10 Discharge Summary Reason For Visit: ACUTE DVT OF RIGHT TIBIAL VEIN,DIFFICULTY WALKING Current Active Problems Acute DVT of right tibial vein (Acute) Altered bowel function (Acute) HTN (hypertension) (Acute) Osteoarthritis (Acute) Osteoarthritis of right hip (Acute) Seizure disorder (Acute) Hospital Course: Laboratory Last Values WBC 5.5 K/mm3 (4.0-10.0) 12/10/17 06:10 RBC 4.60 M/mm3 (3.60-5.2) 12/10/17 06:10 Hgb 12.7 GM/dL (10.7-15.3) 12/10/17 06:10 Hct 39.1 % (32.4-45.2) 12/10/17 06:10 MCV 85.1 fl (80-96) 12/10/17 06:10 MCH 27.6 pg (25.7-33.7) 12/10/17 06:10 MCHC 32.4 g/dl (32.0-36.0) 12/10/17 06:10 RDW 14.5 % (11.6-15.6) 12/10/17 06:10 Plt Count 191 K/MM3 (134-434) 12/10/17 06:10 MPV 7.6 fl (7.5-11.1) 12/10/17 06:10 Absolute Neuts (auto) 3.2 K/mm3 (1.5-8.0) 12/10/17 06:10 Neutrophils % 58.5 % (42.8-82.8) 12/10/17 06:10 Lymphocytes % 29.0 % (8-40) D 12/10/17 06:10 Monocytes % 8.0 % (3.8-10.2) 12/10/17 06:10 Eosinophils % 3.6 % (0-4.5) D 12/10/17 06:10 Basophils % 0.9 % (0-2.0) 12/10/17 06:10 Nucleated RBC % 0 % (0-0) 12/10/17 06:10 PT with INR 13.60 SEC (9.7-13.0) H 12/09/17 06:00 INR 1.20 (0.83-1.09) H 12/09/17 06:00 Sodium 144 mmol/L (136-145) 12/10/17 06:10 Potassium 3.8 mmol/L (3.5-5.1) 12/10/17 06:10 Chloride 106 mmol/L (98-107) 12/10/17 06:10 Carbon Dioxide 32 mmol/L (21-32) 12/10/17 06:10 Anion Gap 6 MMOL/L (8-16) L 12/10/17 06:10 BUN 13 mg/dL (7-18) 12/10/17 06:10 Creatinine 0.4 mg/dL (0.55-1.3) L 12/10/17 06:10 Creat Clearance w eGFR > 60 (>60) 12/10/17 06:10 Random Glucose 99 mg/dL (74-106) 12/10/17 06:10 Calcium 8.5 mg/dL (8.5-10.1) 09/15/18 06:10 Phosphorus 3.3 mg/dL (2.5-4.9) 12/08/17 06:30 Magnesium 2.2 mg/dL (1.8-2.4) 12/08/17 06:30 Total Bilirubin 0.4 mg/dL (0.2-1.0) 12/10/17 06:10 AST 16 U/L (15-37) 12/10/17 06:10 ALT 22 U/L (13-61) 12/10/17 06:10 Alkaline Phosphatase 125 U/L (45-117) H 12/10/17 06:10 Total Protein 6.3 g/dl (6.4-8.2) L 12/10/17 06:10 Albumin 3.0 g/dl (3.4-5.0) L 12/10/17 06:10 Condition: Guarded - Instructions Referrals: Keon Nichols MD, MD [Primary Care Provider] - Brooke Chen MD [Staff Physician] - Trey Matias MD [Staff Physician] - Tim Dunn MD [Staff Physician] - - Home Medications Comprehensive Discharge Medication List: Ambulatory Orders Ascorbic Acid [Vitamin C] 1,000 mg PO DAILY 12/07/17 Jv/D3/Mag11/Zinc/Environmental Education Specialist/Jesus/Bor [Caltrate 600+D Plus Tablet] 1 each PO DAILY 03/14 Losartan Potassium [Cozaar -] 50 mg PO DAILY 12/07/17 [place]-3 Fatty Acids [[place]-3] 1,000 mg PO BID 12/07/17 Phenytoin [Dilantin Chewable Tablet -] 100 mg PO TID 12/07/17 Vitamin E 400 unit PO DAILY 12/07/17 Celecoxib [Celebrex] 200 mg PO PRN PRN 12/08/17
[2017-12-12] MEDS: DOCUSATE SODIUM 100 MG CAPSULE (FP) PO SCH (22:17)
--- NOTE | 2017-12-12 23:02 | PN ---
Progress Note (short form) - Note Progress Note: Patient seen and examined Rt. lower extremity pain Last Vital SigDiscussed with and primary team THns Temp Pulse Resp BP Pulse Ox 98.8 F 90 18 142/69 98 12/12/17 21:00 12/12/17 21:00 12/12/17 22:00 12/12/17 21:00 12/12/17 22:00 Cor: RSR, No murmurs, No gallops Lungs: Clear to P&A Abd: Soft, Normal bowel sounds, No organomegaly Ext:No significant edema Labs/Meds reviewed A/P 82 yo female pmh of HTN, Seizures,RA, osteoarthritis and h/o femur fracture as a child presents to the ED for right hip and thigh pain. Patient unable to ambulate due to pain for 3 days. Rt. lower extremity duplex showed posterior tibial DVT Xrays show increased arthritic changes in hip/spine RLE DVT-- posterior tibial On lovenox Dialntin decreases level of eliquis and Xeralto and hence use not recommended with dilantin. To consider bridging to coumadin bt will need close monitoring of INR and dilantn levels as coumadin can increase dilantin levels and dilantin can increase INR Discussed with Dr. Dunn and primary team -- to consider rehab placement. THR may need to be delayed from 01/12 to 02/12 . May need ivc filterprior to THR as a/c may need to be interrupted. will request vascular consult
[2017-12-12] MEDS: oxyCODONE HCL 5 MG TABLET PO PRN (23:03)
[2017-12-13] MEDS: PHENYTOIN 50 MG TAB.CHEW PO SCH ×2 (05:58→13:39)
[2017-12-13 07:45] LABS: BASO % 0.9 % (0-2.0); EOS % 4.7 % (0-4.5); HEMOGLOBIN 12.5 GM/dL (10.7-15.3); LYMPH % 33.7 % (8-40); MCH 27.2 pg (25.7-33.7); MCHC 31.9 g/dl (32.0-36.0); MEAN CELL VOLUME 85.2 fl (80-96); MEAN PLT VOLUME 7.9 fl (7.5-11.1); MONO % 6.7 % (3.8-10.2); PLATELET COUNT 175 K/MM3 (134-434); RBC 4.58 M/mm3 (3.60-5.2); RDW 14.7 % (11.6-15.6); WHITE BLOOD COUNT 4.5 K/mm3 (4.0-10.0)
[2017-12-13 08:12] LABS: CHLORIDE 106 mmol/L (98-107); POTASSIUM 3.4 mmol/L (3.5-5.1); SODIUM 143 mmol/L (136-145)
[2017-12-13 08:24] LABS: INR 1.12 (0.83-1.09); PROTHROMBIN TIME (PATIENT) 12.7 SEC (9.7-13.0)
[2017-12-13 08:26] LABS: ALBUMIN 2.9 g/dl (3.4-5.0); ALK PHOS 122 U/L (45-117); ANION GAP 6 MMOL/L (8-16); BILIRUBIN,TOTAL 0.3 mg/dL (0.2-1); BLOOD UREA NITROGEN 13 mg/dL (7-18); CALCIUM 8.4 mg/dL (8.5-10.1); CO2 31 mmol/L (21-32); CREATININE 0.3 mg/dL (0.55-1.3); GLUCOSE,RANDOM 101 mg/dL (74-106); SGOT/AST 64 U/L (15-37); SGPT/ALT 80 U/L (13-61); TOT PROT 6.1 g/dl (6.4-8.2)
[2017-12-13] MEDS ORDERED: PT OWN MED DRAWER 7, Y5N ONE (09:47)
[2017-12-13] MEDS: CALCIUM 500MG/VIT-D 200 UNITS COMBO TABLET (FP) PO SCH (09:50)
[2017-12-13] MEDS: ASCORBIC ACID 500 MG TABLET (FP) PO SCH (09:50)
[2017-12-13] MEDS: ENOXAPARIN NA (PORCINE) 60 MG/0.6 ML DISP.SYRIN SQ SCH (09:50)
[2017-12-13] MEDS: LOSARTAN POTASSIUM 50 MG TABLET (FP) PO SCH (09:50)
[2017-12-13] MEDS: VITAMIN E 400 INTERNATIONAL-UNITS CAPSULE (FP) PO SCH (09:51)
[2017-12-13] MEDS: OMEGA-3 ACID ETHYL ESTERS (FATTY-ACIDS) 1 GM CAPSULE (FP) PO SCH (09:52)
[2017-12-13] MEDS: SENNOSIDES 8.6MG TABLET (FP) PO SCH (09:53)
[2017-12-13] MEDS: POLYETHYLENE GLYCOL 3350 119 GM BTL PO SCH ×3 (09:53→17:34)
--- NOTE | 2017-12-13 11:13 | PN ---
Progress Note, Physician Chief Complaint: right tibial DVT History of Present Illness: right tibial DVT NAD agreed to go to [facility] - Current Medication List Current Medications: Active Medications Ascorbic Acid (Vitamin C -) 1,000 mg PO DAILY [facility] Last Admin: 12/13/17 09:50 Dose: 1,000 mg Calcium Carbonate/Cholecalciferol (Os-Jv 500+D -) 1 tab PO DAILY [facility] Last Admin: 12/13/17 09:50 Dose: 1 tab Docusate Sodium (Colace -) 300 mg PO HS [facility] Last Admin: 12/12/17 22:17 Dose: Not Given Enoxaparin Sodium (Lovenox -) 60 mg SQ BID [facility] Last Admin: 12/13/17 09:50 Dose: 60 mg Losartan Potassium (Cozaar -) 50 mg PO DAILY [facility] Last Admin: 12/13/17 09:50 Dose: 50 mg Methocarbamol (Robaxin -) 500 mg PO QID PRN PRN Reason: MUSCLE SPASMS Gorur-7-Davq Ethyl Esters (Lovaza -) 1 gm PO BID [facility] Last Admin: 12/13/17 09:52 Dose: 1 gm Oxycodone HCl (Roxicodone -) 5 mg PO Q6H PRN PRN Reason: PAIN LEVEL 6-10 Last Admin: 12/12/17 23:03 Dose: 5 mg Phenytoin Sodium (Dilantin Chewable Tablet -) 100 mg PO TID [facility] Last Admin: 12/13/17 05:58 Dose: 100 mg Polyethylene Glycol (Miralax (For Daily Use) -) 17 gm PO QID [facility] Last Admin: 12/13/17 09:53 Dose: Not Given Senna (Senna -) 1 tab PO BID [facility] Last Admin: 12/13/17 09:53 Dose: Not Given Vitamin E (Vitamin E -) 400 unit PO DAILY [facility] Last Admin: 12/13/17 09:51 Dose: 400 unit Warfarin Sodium (Coumadin -) 5 mg PO DAILY@1800 [facility] Warfarin Sodium (Coumadin -) 7.5 mg PO ONCE@1800 ONE Stop: 12/13/17 18:01 - Objective Vital Signs: Vital Signs Temperature 98.1 F 12/13/17 04:00 Pulse Rate 79 12/13/17 04:00 Respiratory Rate 18 12/13/17 05:45 Blood Pressure 144/70 12/13/17 04:00 O2 Sat by Pulse Oximetry (%) 98 12/13/17 05:45 Constitutional: Yes: Well Nourished, No Distress, Calm Cardiovascular: Yes: Regular Rate and Rhythm Respiratory: Yes: Regular Gastrointestinal: Yes: Normal Bowel Sounds, Soft Musculoskeletal: Yes: Muscle Weakness Extremities: Yes: Deformity (BL hands) Edema: No Peripheral Pulses WNL: Yes Neurological: Yes: Alert, Oriented Psychiatric: Yes: Alert, Oriented Labs: CBC, BMP 12/13/17 06:20 12/13/17 06:20 INR, PTT INR 1.12 (0.83-1.09) H 12/13/17 06:20 Problem List - Problems (1) Acute DVT of right tibial vein Assessment/Plan: -Hematology on board -On warfarin, continue lovenox until therapeutic on coumadin -labs in AM if not discharged today -repeat U/S duplex RLE in 4 weeks Code(s): I82.441 - ACUTE EMBOLISM AND THROMBOSIS OF RIGHT TIBIAL VEIN (2) Altered bowel function Code(s): R19.8 - OTH SYMPTOMS AND SIGNS INVOLVING THE DGSTV SYS AND ABDOMEN (3) HTN (hypertension) Code(s): I10 - ESSENTIAL (PRIMARY) HYPERTENSION (4) Osteoarthritis of right hip Assessment/Plan: -Seen by orhtopedist -Scheduled for THR outpatient, which will be postponed given the current medical status Code(s): M16.11 - UNILATERAL PRIMARY OSTEOARTHRITIS, RIGHT HIP (5) Osteoarthritis Assessment/Plan: multiple joints-severe -Seen by Rheumatology -pain management -Unable to get out of bed, which is not her basline, she was walking with walker until 1 week ago -Physical therapy Code(s): M19.90 - UNSPECIFIED OSTEOARTHRITIS, UNSPECIFIED SITE (6) Hypokalemia Assessment/Plan: mild -Supplement with Kdur 20 meq po daily Code(s): E87.6 - HYPOKALEMIA Assessment/Plan see problem list
[2017-12-13] MEDS ORDERED: POTASSIUM CHLORIDE TABS 20 MEQ TABLET.ER (FP) PO SCH (11:15)
[2017-12-13 15:10] VITALS: BP 147/77; PULSE 90; TEMP 98.7
--- NOTE | 2017-12-13 15:24 | PN ---
Physical Exam: SUBJECTIVE: Patient seen and examined at bed side this morning. No complaints. Says the pain in the right hip is a little better. Denies chest pain, sob, cough , palpitation, abdominal pain, nausea or vomiting. Bowel/Bladder habit normal. Sleep/Appetite normal. No acute overnight events. OBJECTIVE: Vital Signs Period Temp Pulse Resp BP Sys/Salas Pulse Ox Last 24 Hr 98.1 F-98.8 F 79-94 17-18 134-148/67-78 98-98 GENERAL: Elderly female, lying comfortably in bed, is awake, alert, and fully oriented, in no acute distress. HEAD: Normal with no signs of trauma. EYES: EOM intact, Pallor +, no icterus. ENT: Ears normal, moist mucous membranes. NECK: Supple. LUNGS: B/L Breath sounds equal, clear to auscultation bilaterally, no wheezes, no crackles, no accessory muscle use. HEART: Regular rate and rhythm, S1, S2 with soft systolic murmur. ABDOMEN: Soft, nontender, no organomegaly appreciated. UPPER EXTREMITIES: 2+ pulses, warm, well-perfused, no edema. LOWER EXTREMITIES: 2+ pulses, warm, well-perfused, no edema. Left LE shorter than the right. ROM limited in the right. NEUROLOGICAL: No facial droop. Normal speech, gait not observed. PSYCH: Normal mood, normal affect. SKIN: Warm, dry, normal turgor, no rashes. Small brown-black colored lesions throughout the body. Laboratory Results - last 24 hr 12/13/17 12/13/17 12/13/17 06:20 06:20 06:20 WBC 4.5 RBC 4.58 Hgb 12.5 Hct 39.0 MCV 85.2 MCH 27.2 MCHC 31.9 L RDW 14.7 Plt Count 175 MPV 7.9 Absolute Neuts (auto) 2.5 Neutrophils % 54.0 Lymphocytes % 33.7 Monocytes % 6.7 Eosinophils % 4.7 H Basophils % 0.9 Nucleated RBC % 0 PT with INR 12.70 INR 1.12 H Sodium 143 Potassium 3.4 L Chloride 106 Carbon Dioxide 31 Anion Gap 6 L BUN 13 Creatinine 0.3 L Creat Clearance w eGFR > 60 Random Glucose 101 Calcium 8.4 L Total Bilirubin 0.3 AST 64 H ALT 80 H Alkaline Phosphatase 122 H Total Protein 6.1 L Albumin 2.9 L Active Medications Generic Name Dose Route Start Last Admin Trade Name Freq PRN Reason Stop Dose Admin Ascorbic Acid 1,000 mg 12/08/17 10:00 12/13/17 09:50 Vitamin C - PO 1,000 mg DAILY [facility] Administration Calcium Carbonate/Cholecalciferol 1 tab 12/08/17 10:00 12/13/17 09:50 Os-Jv 500+D - PO 1 tab DAILY [facility] Administration Docusate Sodium 300 mg 12/08/17 22:00 12/12/17 22:17 Colace - PO Not Given HS [facility] Enoxaparin Sodium 60 mg 12/08/17 10:00 12/13/17 09:50 Lovenox - SQ 60 mg BID [facility] Administration Losartan Potassium 50 mg 12/08/17 10:00 12/13/17 09:50 Cozaar - PO 50 mg DAILY [facility] Administration Methocarbamol 500 mg 12/12/17 22:01 Robaxin - PO QID PRN MUSCLE SPASMS Anyha-7-Zttm Ethyl Esters 1 gm 12/08/17 10:00 12/13/17 09:52 Lovaza - PO 1 gm BID [facility] Administration Oxycodone HCl 5 mg 12/07/17 22:51 12/12/17 23:03 Roxicodone - PO 5 mg Q6H PRN Administration PAIN LEVEL 6-10 Phenytoin Sodium 100 mg 12/08/17 06:00 12/13/17 13:39 Dilantin Chewable Tablet - PO 100 mg TID [facility] Administration Polyethylene Glycol 17 gm 12/09/17 18:00 12/13/17 13:43 Miralax (For Daily Use) - PO Not Given QID [facility] Potassium Chloride 20 meq 12/13/17 11:15 12/13/17 13:39 K-Dur - PO 20 meq DAILY [facility] Administration Senna 1 tab 12/10/17 10:00 12/13/17 09:53 Senna - PO Not Given BID [facility] Vitamin E 400 unit 12/08/17 10:00 12/13/17 09:51 Vitamin E - PO 400 unit DAILY [facility] Administration Warfarin Sodium 5 mg 12/14/17 18:00 Coumadin - PO DAILY@1800 [facility] Warfarin Sodium 7.5 mg 12/13/17 18:00 Coumadin - PO 12/13/17 18:01 ONCE@1800 ONE Imaging: Right LE US IMPRESSION: Right leg DVT is seen. Specifically thrombosis of the posterior tibial vein is noted. The remaining deep veins appear patent. This is an 82 year old female with a past medical history of RA, HTN, seizure disorder, right femur fracture who presented to the ED with severe left thigh pain x 3 days. ASSESSMENT Acute DVT of right tibial vein H/O Seizure on Dilantin: pt states she hasn't had seizure since > 20 yrs, has been on Dilantin since Osteoarthritis of right hip: Has an elective RHR scheduled on Jan 02, 2018 PLAN Acute Right tibial vein thrombosis Bridging with coumadin. Still subtherapeutic. On Lovenox 60 mg sq BID. INR checks maintain it between 2-3. Coumadin is a better choice as newer coags interact with Dilantin reducing its efficacy. Discussing regarding the placement of IVC filter. Since patient will be off a /c for the surgery, may need IVC filter placement prior to it. Once discharged, needs to f/up with Dr. Cox/Dr. Brown as outpatient. Plan of care explained to the patient. She verbalized understanding. Case discussed with Dr. Brown. Visit type - Emergency Visit Emergency Visit: Yes ED Registration Date: 12/12/17 Care time: The patient presented to the Emergency Department on the above date and was hospitalized for further evaluation of their emergent condition. - New Patient This patient is new to me today: No - Critical Care Critical Care patient: No - Discharge Referral Referred to [facility] Med P.C.: No
--- NOTE | 2017-12-13 15:44 | PN ---
Teaching Attending Note Name of Resident: Caro Lew ATTENDING PHYSICIAN STATEMENT I saw and evaluated the patient. I reviewed the resident's note and discussed the case with the resident. I agree with the resident's findings and plan as documented. SUBJECTIVE:Patient seen and examined Agree with bridging to coumadin therapy. Currently sub-therapeutic. OBJECTIVE: ASSESSMENT AND PLAN:
--- NOTE | 2017-12-13 17:16 | PN ---
Progress Note (short form) - Note Progress Note: VAscular surgery right femur fracture with right tibial vein dvt. Will get surgery by ortho in oct. Will need IVC filter due to interruption of ac. will speak to ortho about placing filter prior to femur repair in same setting. cont ac. Roderick cruz DO
[2017-12-13] MEDS ORDERED: WARFARIN NA 7.5 MG TABLET (FP) PO ONE (18:00)
[2017-12-14] MEDS ORDERED: WARFARIN NA 5 MG TABLET (UD) PO SCH (18:00)
== END 2017-12-13 17:43 | DRG 301 ==
LOC: JER 13:06 → JERBED 20:11 → J5S 12-08 01:16 → OBSVTOIN 12-12 14:00
PROVIDERS: ADMIT Internal Medicine; ATTEND Family Medicine
DX: I82.441 Acute embolism and thrombosis of right tibial vein (principal); I10 Essential (primary) hypertension; M16.11 Unilateral primary osteoarthritis, right hip; E87.6 Hypokalemia; G40.909 Epilepsy, unspecified, not intractable, without status epilepticus; M48.061 Spinal stenosis, lumbar region without neurogenic claudication; M06.9 Rheumatoid arthritis, unspecified
CPT/HCPCS: 36415; 72131-TC; 73502-TC-RT; 73552-TC-RT-FY; 73700-TC-RT; 80048; 80053; 83735; 84100; 85025; 85610; 93971-TC; 94010; 97162-GP; 99282-25; G0378

== ENCOUNTER 2018-01-03 08:03 | Inpatient (IN) | payer OTHER ==
[2017-12-30 10:31] VITALS: BMI 21.9
--- NOTE | 2018-01-03 08:08 | HP ---
Satellite PMH - Chief Complaint Chief Complaint: right hip pain - Past Medical History Allergies/Adverse Reactions: Allergies Allergy/AdvReac Type Severity Reaction Status Date / Time SEASONAL Allergy Intermediate NASAL Uncoded 12/30/17 10:34 CONGESTION SURGICAL TAPE Allergy Intermediate Rash Uncoded 12/30/17 10:34 Cardiovascular: Yes: HTN - Current Medications Current Medications: Home Medications Medication Instructions Recorded Ascorbic Acid [Vitamin C] 1,000 mg PO DAILY 12/07/17 Jv/D3/Mag11/Zinc/Press Washer/Jesus/Bor 1 each PO DAILY 12/07/17 [Caltrate 600+D Plus Tablet] Losartan Potassium [Cozaar -] 50 mg PO DAILY 12/07/17 Victoria-3 Fatty Acids [Victoria-3] 1,000 mg PO BID 12/07/17 Phenytoin [Dilantin Chewable 100 mg PO TID 12/07/17 Tablet -] Vitamin E 400 unit PO DAILY 12/07/17 Docusate Sodium [Colace -] 300 mg PO HS capsule 12/13/17 Enoxaparin [Lovenox -] 60 mg SQ BID disp.syrin 12/13/17 Methocarbamol [Robaxin -] 500 mg PO QID PRN tablet 12/13/17 Polyethylene Glycol 3350 [Miralax 17 gm PO QID bottle 12/13/17 119 gm Btl -] Potassium Chloride [K-Dur -] 20 meq PO DAILY tablet.er 12/13/17 Sennosides [Senna -] 1 tab PO BID tablet 12/13/17 Warfarin Na [Coumadin -] 5 mg PO DAILY@1800 tablet 12/13/17 oxyCODONE HCL [Roxicodone -] 5 mg PO Q6H PRN tablet MDD 4 12/13/17 Satellite Physical Exam - Physical Examination General Appearance: Well Nourished, Well Developed, Alert & Oriented x3 ENT: Clear Lung: Normal air movement Heart: Regular rate & rhythm Extremities: Other (right hip- + ttp, decr rom, nvi xrays show grade 4 hip djd) Neurological: Intact, Alert, Oriented Satellite Impression/Plan - Impression/Plan Impression: right hip djd Operative Procedure: right fernando thr Date to be Performed: 01/03/18
[2018-01-03] MEDS ORDERED: TRANEXAMIC ACID 1000 MG/10 ML VIAL IVPUSH ONE (09:54)
[2018-01-03] MEDS ORDERED: CEFAZOLIN 1 GM/D5W 1 GRAM/50 ML BAG IVPB ONE (09:54)
[2018-01-03] MEDS ORDERED: GABAPENTIN 300 MG CAPSULE (FP) PO ONE (09:54)
[2018-01-03] MEDS ORDERED: CELECOXIB 200 MG CAPSULE PO ONE (09:54)
[2018-01-03] MEDS ORDERED: MIDAZOLAM HCL 2 MG/2 ML SINGLE DOSE VIAL ONE ×2 (10:17→12:03)
[2018-01-03] MEDS ORDERED: DEXAMETHASONE SOD PHOSPHATE/PF 10 MG/ML SDV ONE (10:17)
[2018-01-03 10:19] LABS: INR 1.2 (0.82-1.09); PROTHROMBIN TIME (PATIENT) 13.4 SEC (10.2-13.0)
[2018-01-03] MEDS ORDERED: PROPOFOL 20 ML ONE ×2 (11:05)
[2018-01-03] MEDS ORDERED: ceFAZolin SODIUM 1 GM VIAL ONE (11:06)
[2018-01-03] MEDS ORDERED: TRANEXAMIC ACID 1000 MG/10 ML VIAL ONE ×2 (11:06)
[2018-01-03] MEDS ORDERED: BUPIVACAINE HCL/PF 0.5% (5MG/ML) 10 ML VIAL ONE (11:18)
[2018-01-03] MEDS ORDERED: PHENYLEPHRINE HCL 10 MG/1 ML SINGLE DOSE VIAL ONE (12:45)
[2018-01-03] MEDS ORDERED: ONDANSETRON 4 MG/2 ML VIAL IVPUSH PRN ×2 (13:37→13:54)
[2018-01-03] MEDS ORDERED: MAG HYDROX/AL HYDROX/SIMETH 30 ML UNIT-DOSE CUP PO PRN (13:37)
[2018-01-03] MEDS ORDERED: MAGNESIUM HYDROX 2400MG/30ML ORAL SUSPENSION 30 ML CUP PO PRN (13:37)
--- NOTE | 2018-01-03 13:42 | OP ---
Operative Note - Note: Operative Date: 01/03/18 (cielo) Pre-Operative Diagnosis: right hip djd Operation: right fernando thr Post-Operative Diagnosis: Same as Pre-op Surgeon: Tim Dunn Downstairs Maid: Sheng Servin Anesthesiologist/CD REACTOR OPERATOR: Jeremie Whalen Anesthesia: General, Local Specimens Removed: femoral head Estimated Blood Loss (mls): 100 Operative Report Dictated: Yes
[2018-01-03] MEDS ORDERED: LACTATED RINGERS SOLUTION 1,000 ML IV SCH ×2 (13:45→14:00)
[2018-01-03] MEDS ORDERED: oxyCODONE HCL 5 MG TABLET PO PRN (13:54)
[2018-01-03] MEDS ORDERED: ACETAMINOPHEN 1000 MG/100 ML VIAL (NON FORMULARY) IVPB ONE (13:54)
[2018-01-03] MEDS: PHENYTOIN NA EXTENDED 100 MG CAPSULE (FP) PO SCH ×2 (14:22→21:23)
[2018-01-03] MEDS ORDERED: ACETAMINOPHEN INJECTION 100 ML IVPB ONE (14:33)
--- NOTE | 2018-01-03 16:12 | SPEC ---
DATE OF OPERATION: 01/03/2018 PREOPERATIVE DIAGNOSIS: Degenerative joint disease right hip. POSTOPERATIVE DIAGNOSIS: Degenerative joint disease right hip. PROCEDURE PERFORMED: Right total hip replacement with robotic-assisted navigation (MAKOplasty). SURGICAL ATTENDING: Tim Dunn MD GEOCHEMICAL LABORATORY TECHNICIAN: KAREN Purvis ANESTHESIA: Regional and spinal. CLOSURE: A 52 Press-Fit Trident 2 acetabulum number 7 Accolade 2 femoral stem MDM plus 8 head. Number 1 Vicryl for fascia, 0 and 2-0 subcutaneous, 3-0 Monocryl subcuticular for skin with skin glue, 4-0 undyed Vicryl for pin sites. ESTIMATED BLOOD LOSS: Less than 100 mL. COMPLICATIONS: None. CONDITION: To the recovery room in stable condition. DESCRIPTION OF PROCEDURE: The patient was taken to the operating room on January 03, 2018. General and regional anesthesia was administered by the anesthesiologist. IV Kefzol and TXA were administered prophylactically prior to the case. The patient was placed in the lateral decubitus position will all prominences well-padded. The right hip area was prepped and draped in the usual sterile fashion. Using 3 small stab incisions over the iliac crest, 3 threaded pins were drilled in power fashion through the 2 tables of the crest. These pins were fastened and the navigation array for the Noe navigation system. Next, a 12 to 15-cm curved longitudinal incision over the posterolateral aspect of the greater trochanter was incised. Hemostasis was achieved with Bovie cautery. Sharp dissection was carried down to level of the fascia. The fascia was opened the entire length of the incision, spreading the fibers of the gluteus silvina in the direction of origin. A Charnley retractor was placed in this layer. Care was taken not to impale the sciatic nerve. The short external rotators were detached off the insertion of the greater trochanter and peeled off the capsule. A posterior capsulotomy was then performed. A check point was malleted into the greater trochanter and a point on the inferior pole of the patella was obtained as well. These 2 points were used to assess the preoperative offset and limb lengths of the hip. The hip was then dislocated. The femoral neck was then osteotomized down to the appropriate level as directed by the navigation device. Anterior and posterior retractors were placed, exposing the acetabulum. A circumferential labral excision was performed. A check point was malleted into the acetabulum as well. Multiple sites inside the acetabulum and around the rim were utilized to register the acetabulum with the navigation device. An excellent registration of less than 0.5 mm was obtained. The hip was then reamed with the appropriate reamer down to the appropriate depth, with the appropriate orientation and version as assessed on our preoperative plan for this patient. The reamer was removed and the acetabulum was inspected to have good bleeding surfaces throughout. The real acetabular cup was then malleted down into place, with the holes in the appropriate position, until an excellent fixation was obtained. No screws were necessary. The navigation device ensured appropriate orientation and version, with the depth as predetermined. The appropriate liner was then clipped into place. Attention was directed to the femur. The proximal femur was prepared by use a box chisel, a canal finder and serial broaches until the broach achieved excellent rigidity in the proximal femur with the appropriate version being applied. A calcar planer was used to smooth off the calcar flush with the trial components. A trial reduction with the appropriate head was done, and the hip was reduced. The hip was taken through a range of motion from full extension with external rotation to marked flexion, and was stable at 90 degrees of flexion. It was stable to marked abduction and internal rotation, with a positive hang test and negative telescoping. Limb lengths were ascertained visually as well as with the navigation device to be within the targeted range for this patient. The trial component was removed. The real component was then malleted into place. The head was cold welded to the trunnion, and the hip was reduced. Range of motion, stability and limb lengths were as described in the trial component. Then the hip was pulse antibiotic irrigated. Vancomycin powder was placed in the hip joint. The capsule was closed. The fascia was then closed as well using number 1 Vicryl interrupted suture, 0 and 2-0 subcutaneous, and 3-0 V-Loc for the skin. 4-0 undyed Vicryl was used to close the pin sites after the pins were removed. All check points were also removed. Sterile Aquacel dressing was applied. The patient was awakened from anesthesia and transferred into the supine position. Bilateral SCDs and an abduction pillow were placed. X-rays revealed excellent position of the components. The patient was transferred to the recovery room in stable condition, with no complications. Estimated blood loss was less than 100 mL. Jorge [place]/[id number]
[2018-01-03] MEDS: CEFAZOLIN 1 GM/D5W 1 GRAM/50 ML BAG IVPB SCH (20:55)
[2018-01-03] MEDS: SENNOSIDES 8.6MG TABLET (FP) PO SCH (21:23)
[2018-01-03] MEDS: oxyCODONE HCL 5 MG TABLET PO PRN (23:57)
[2018-01-04] MEDS: oxyCODONE HCL 5 MG TABLET PO PRN ×4 (02:48→21:59)
[2018-01-04] MEDS: CEFAZOLIN 1 GM/D5W 1 GRAM/50 ML BAG IVPB SCH (03:01)
[2018-01-04] MEDS: PHENYTOIN NA EXTENDED 100 MG CAPSULE (FP) PO SCH ×3 (06:43→21:38)
[2018-01-04 08:24] LABS: HEMATOCRIT 35.2 % (32.4-45.2); MCHC 31.3 g/dl (32.0-36.0); MEAN CELL VOLUME 86.2 fl (80-96); MEAN PLT VOLUME 7.6 fl (7.5-11.1); PLATELET COUNT 162 K/MM3 (134-434); RBC 4.08 M/mm3 (3.60-5.2); RDW 13.7 % (11.6-15.6); WHITE BLOOD COUNT 6.8 K/mm3 (4.0-10.8)
--- NOTE | 2018-01-04 09:42 | PN ---
Progress Note (short form) - Note Progress Note: Ortho Pt seen and examined s/p right fernando thr pod #1 Selected Entries 01/04/18 05:00 Temperature 99.1 F Pulse Rate 100 H Respiratory 20 Rate Blood Pressure 152/67 Laboratory Tests 01/04/18 08:00 WBC 6.8 Hgb 11.0 Hct 35.2 Plt Count 162 Dressing c/d/i, calf soft, nt nvi a/p PT hip precautions dvt ppx pain control d/c planning for adira
[2018-01-04] MEDS: POTASSIUM CHLORIDE TABS 10 MEQ TABLET.ER (FP) PO SCH (10:39)
[2018-01-04] MEDS: LOSARTAN POTASSIUM 50 MG TABLET (FP) PO SCH (10:39)
[2018-01-04] MEDS: MULTIVITAMINS (DAILY MVI) TABLET (FP) PO SCH (10:40)
[2018-01-04] MEDS: WARFARIN NA 5 MG TABLET (UD) PO SCH (10:40)
[2018-01-04] MEDS: ENOXAPARIN NA (PORCINE) 40 MG/0.4 ML DISP.SYRIN SQ SCH (10:41)
[2018-01-04] MEDS: SENNOSIDES 8.6MG TABLET (FP) PO SCH ×2 (10:41→21:38)
[2018-01-04] MEDS: PANTOPRAZOLE 40 MG TABLET (FP) PO SCH (10:41)
--- NOTE | 2018-01-04 11:03 | PN ---
Progress Note (short form) - Note Progress Note: 82F POD1 s/p right THR under spinal anesthetic with peripheral nerve block for post operative pain relief. Pt states that pain is well controlled and reports no anesthetic complications. AVSS. Motor and sensory function in bilateral lower extremities is at baseline. Continue current regimen.
[2018-01-05] MEDS: PHENYTOIN NA EXTENDED 100 MG CAPSULE (FP) PO SCH (06:29)
[2018-01-05 06:48] VITALS: BP 157/80; PULSE 109; TEMP 99.9
[2018-01-05 07:58] LABS: HEMATOCRIT 31.3 % (32.4-45.2); HEMOGLOBIN 10.4 GM/dl (10.7-15.3); MCH 28.5 pg (25.7-33.7); MCHC 33.2 g/dl (32.0-36.0); PLATELET COUNT 137 K/MM3 (134-434); RBC 3.64 M/mm3 (3.60-5.2); RDW 13.1 % (11.6-15.6)
[2018-01-05] MEDS: POTASSIUM CHLORIDE TABS 10 MEQ TABLET.ER (FP) PO SCH (09:45)
[2018-01-05] MEDS: WARFARIN NA 5 MG TABLET (UD) PO SCH (09:45)
[2018-01-05] MEDS: SENNOSIDES 8.6MG TABLET (FP) PO SCH (09:45)
[2018-01-05] MEDS: LOSARTAN POTASSIUM 50 MG TABLET (FP) PO SCH (09:45)
[2018-01-05] MEDS: MULTIVITAMINS (DAILY MVI) TABLET (FP) PO SCH (09:45)
[2018-01-05] MEDS: PANTOPRAZOLE 40 MG TABLET (FP) PO SCH (09:45)
[2018-01-05] MEDS: oxyCODONE HCL 5 MG TABLET PO PRN (09:46)
[2018-01-05] MEDS: ENOXAPARIN NA (PORCINE) 40 MG/0.4 ML DISP.SYRIN SQ SCH (09:47)
--- NOTE | 2018-01-05 10:30 | PN ---
Progress Note (short form) - Note Progress Note: Ortho Pt seen and examined s/p right fernando thr pod #2 Selected Entries 01/05/18 06:47 Temperature 99.9 F H Pulse Rate 109 H Respiratory 18 Rate Blood Pressure 157/80 Laboratory Tests 01/05/18 07:35 WBC 9.0 Hgb 10.4 L Hct 31.3 L Plt Count 137 Dressing c/d/i, calf soft, nt nvi a/p PT hip precautions dvt ppx pain control d/c planning for nicol squires for today
[2018-01-05 11:57] LABS: INR 1.35 (0.82-1.09)
--- NOTE | 2018-01-06 14:25 | PATH ---
Surgical Pathology Report Patient Name: ALFIE DE LA PAZ Med. Rec. #: [id number] /Age/Gender: 1935 (Age: 82) / F Account: [id number] Location: [facility] Taken: 01/03/2018 Received: 01/03/2018 Reported: 01/05/2018 Physicians: Tim Dunn M.D. Specimen(s) Received RIGHT FEMORAL HEAD Clinical History Osteoarthritis right hip Final Diagnosis BONE, FEMORAL HEAD, RIGHT, TOTAL HIP REPLACEMENT: BONE WITH DEGENERATIVE JOINT DISEASE. Electronically Signed Petrona Calzada M.D. Gross Description Received in formalin, labeled "right femoral head," is a 4.7 x 4.7 x 3.5 cm. femoral head with a 2 cm in length portion of femoral neck attached. The margin of resection is smooth. There is a 4.5 cm greatest dimension area of eburnation present. The remaining articular surface is lozano-yellow and focally granular. The underlying trabecular bone is yellow and hard. A hardware supplies sales representative section is submitted in one cassette, following decalcification. /01/04/201801/04/2018
== END 2018-01-05 13:15 | DRG 470 ==
LOC: FM/S 08:03
PROVIDERS: ADMIT Orthopaedic Surgery; ATTEND Orthopaedic Surgery
PROC: 8E0Y0CZ Robotic Assisted Procedure of Lower Extremity, Open Approach (ICD-10-PCS; 2018-01-03)
PROC: 0SR90JA Replacement of Right Hip Joint with Synthetic Substitute, Uncemented, Open Approach (ICD-10-PCS; principal; 2018-01-03 12:28)
DX: M16.11 Unilateral primary osteoarthritis, right hip (principal)
CPT/HCPCS: 36415; 73502-TC-RT; 85027; 85610; 88305-TC; 88311-TC; 94760; 97116-GP; 97162-GP; J0131